=== PATIENT | female | born 1985 | race Caucasian/White ===

== ENCOUNTER 2021-02-02 14:28 | Outpatient (CLI) | payer OTHER | END 2021-02-02 14:29 | disposition home or self-care (01) | LOC: PPH VACUNA 14:28 | DX: Z23 Encounter for immunization (principal) ==

== ENCOUNTER 2021-02-26 10:46 | Outpatient (CLI) | payer OTHER | END 2021-02-26 10:49 | disposition home or self-care (01) | LOC: PPH VACUNA 10:46 | DX: Z23 Encounter for immunization (principal) ==

== ENCOUNTER 2023-04-24 08:31 | Outpatient (CLI) | payer OTHER | END 2023-04-24 08:33 | disposition home or self-care (01) | LOC: SONOGRAMA 08:31 | PROVIDERS: ATTEND Pathology Anatomic Pathology & Clinical Pathology | DX: D44.0 Neoplasm of uncertain behavior of thyroid gland (principal); E07.9 Disorder of thyroid, unspecified ==

== ENCOUNTER 2024-05-11 12:31 | Outpatient (CLI) | payer OTHER | END 2024-05-11 12:37 | disposition home or self-care (01) | LOC: RAD 12:31 | PROVIDERS: ATTEND Orthopaedic Surgery | DX: S82.891A Other fracture of right lower leg, initial encounter for closed fracture (principal) ==